=== PATIENT | male | born 1975 | race Caucasian/White ===

== ENCOUNTER 2016-08-15 21:13 | Emergency (ER) | payer MEDICAID ==
[~2016-08-15] VITALS: Ht 177.8 cm; Wt 94.5 kg
[~2016-08-15 21:13] MED LIST: ACET500C5 PO; CLIN-73 PO; ONDA4TAB35 PO
[2016-08-15 21:17] VITALS: Ht 177.8 cm; Wt 94.5 kg
[2016-08-16] MEDS ORDERED: ONDANSETRON (ODT) 4 MG TAB ODT STA (00:56)
[2016-08-16] MEDS ORDERED: HYDROCODONE/APAP (10/325) TAB PO ONE (01:00)
--- NOTE | 2016-08-16 01:17 | ERD ---
ER Documentation Chief Complaint Date/Time DATE: 08/16/16 TIME: 01:14 Chief Complaint n/v with body aches since yesterday HPI This is a 41-year-old male who presents to the emergency department today complaining of nausea and vomiting yesterday morning. Patient states that he was able to eat this afternoon but still felt nauseated. Patient states he developed a headache this afternoon. Denies any fevers or chills, bodyaches, sore throat or cough. ROS All systems reviewed and are negative except as per history of present illness. Medications Home Meds Active Scripts Ondansetron Hcl* (Zofran*) 4 Mg Tablet, 4 MG PO Q6H for NAUSEA AND/OR VOMITING, #30 TAB Prov:SALVATORE BAILEYC 08/16/16 Naproxen* (Naprosyn*) 500 Mg Tablet, 500 MG PO BID Y for PAIN AND/OR INFLAMMATION, #30 TAB Prov:SALVATORE BAILEYC 08/16/16 Hydrocodone/Acetaminophen ([place] 10-325 Tablet) 1 Each Tablet, 1 TAB PO Q6H Y for PAIN, #15 TAB Prov:SALVATORE BAILEYC 08/16/16 Clindamycin Hcl* (Clindamycin Hcl*) 300 Mg Capsule, 300 MG PO TID for 7 Days, CAP Prov:RON CASANOVA DO 09/29/15 Ondansetron Hcl* (Zofran* ODT) 4 mg -ODT Tab.disper, 4 MG PO Q6 Y for NAUSEA AND /OR VOMITING, #10 TAB Prov:GERALDO WHITMORE. [employer] 01/19/15 Acetaminophen* (Tylophen*) 500 Mg Capsule, 1 CAP PO Q6H Y for PAIN AND OR ELEVATED TEMP, #20 CAP Prov:GERALDO WHITMORE. [employer] 01/19/15 Allergies Allergies: Coded Allergies: No Known Allergies (Verified Allergy, Mild, 11/01/11) PMhx/Soc Medical and Surgical Hx: pt denies Medical Hx History of Surgery: Yes (APPENDECTOMY) Anesthesia Reaction: No Hx Neurological Disorder: No Hx Respiratory Disorders: No Hx Cardiac Disorders: No Hx Psychiatric Problems: No Hx Miscellaneous Medical Probl: No Hx Alcohol Use: No Hx Substance Use: No Hx Tobacco Use: Yes Smoking Status: Former smoker Physical Exam Vitals Vital Signs Date Time Temp Pulse Resp B/P Pulse Ox O2 Delivery O2 Flow Rate FiO2 08/15/16 21:17 98.6 97 18 133/89 99 Physical Exam Const: No acute distress Head: Atraumatic Eyes: Normal Conjunctiva. PERRLA. EOM intact. ENT: Normal External Ears, Nose and Mouth. Neck: Full range of motion..~ No meningismus. Resp: Clear to auscultation bilaterally Cardio: Regular rate and rhythm, no murmurs Abd: Soft, non tender, non distended. Normal bowel sounds. Right lower quadrant pain. No left lower quadrant pain. Skin: No petechiae or rashes Back: No midline or flank tenderness Ext: No cyanosis, or edema. Neur: Awake and alert no focal neurologic deficits. No gait ataxia. Psych: Normal Mood and Affect Results 24 hrs Current Medications Medications (Trade) Dose Ordered Sig/Maia Route PRN Reason Start Time Stop Time Status Last Admin Dose Admin Ondansetron HCl (Zofran Odt) 4 mg ONCE STAT ODT 08/16/16 00:56 08/16/16 00:57 DC 08/16/16 02:33 Acetaminophen/ Hydrocodone Bitart ([place] (10/325)) 1 tab ONCE ONCE PO 08/16/16 01:00 08/16/16 01:01 DC 08/16/16 02:34 Procedures/MDM This 41-year-old male who presents to the emergency department today complaining of nausea and vomiting and headache since yesterday. Patient's physical exam is benign. He has no focal neurologic deficits. He is afebrile and otherwise well-appearing. I have low suspicion for acute hemorrhage, mass, abscess. I do not feel the patient requires a head CT scan at this time. Patient has no pain on his abdominal exam. He has a history of appendectomy. I do not feel the patient requires laboratory work or imaging at this time. Low suspicion for any acute surgical abdomen. Patient's symptoms at this time consistent with nausea and vomiting and headache. Possibly due to viral syndrome. Patient was given Zofran and [place] here in the emergency department and patient reported symptomatic improvement.. I will give a prescription for Zofran, [place] and Naprosyn for home. At this time the patient is stable for discharge and outpatient management. Patient should follow up with their PCP in the next 1-2 days. They may return to the emergency department sooner for any persistent or worsening of symptoms. Patient understood and agreed with the plan. . Departure Diagnosis: Primary Impression: Nausea and vomiting Vomiting type: unspecified Vomiting Intractability: non-intractable Qualified Code: R11.2 - Non-intractable vomiting with nausea, unspecified vomiting type Additional Impression: Headache Headache type: unspecified Headache chronicity pattern: unspecified pattern Intractability: not intractable Qualified Code: R51 - Nonintractable headache, unspecified chronicity pattern, unspecified headache type Condition: SALVATORE Abdi PA-C Aug 16, 2016 01:17
[2016-08-16] MEDS ORDERED: ONDA4TAB8 PO (02:54)
[2016-08-16] MEDS ORDERED: HYDR-902 PO (02:54)
[2016-08-16] MEDS ORDERED: NAPR-260 PO (02:54)
[2016-08-16 03:23] VITALS: BP 120/81; PULSE 81; RESP 17; TEMP 98.5
== END 2016-08-16 03:25 | disposition home or self-care (01) ==
LOC: FTE 21:13
DX: R11.2 Nausea with vomiting, unspecified (principal); R51 Headache; Z87.891 Personal history of nicotine dependence
CPT/HCPCS: Z7502; Z7610; 99284